=== PATIENT | male | born 1980 ===

== ENCOUNTER 2022-03-11 14:16 | Outpatient (CLI) | payer OTHER | END 2022-03-11 14:27 | disposition home or self-care (01) | LOC: TOM 14:16 | PROVIDERS: ATTEND Otolaryngology Otology & Neurotology | DX: J33.0 Polyp of nasal cavity (principal) ==

== ENCOUNTER 2022-04-22 06:40 | Day surgery (SDC) | payer OTHER ==
[~2022-04-22] VITALS: Ht 180.3 cm; Wt 87.1 kg
[~2022-04-22 06:40] MED LIST: IBUPRO PO
[2022-04-22] MEDS ORDERED: AMOXICILLIN500 M1 PO (11:48)
[2022-04-22] MEDS ORDERED: AYR SALINE50 ML NASAL (11:49)
== END 2022-04-22 14:20 | disposition home or self-care (01) ==
LOC: CIR.AMB 06:40
PROVIDERS: ATTEND Otolaryngology Otology & Neurotology
DX: J32.4 Chronic pansinusitis (principal); J33.8 Other polyp of sinus; Z20.822 Contact with and (suspected) exposure to COVID-19; Z86.16 Personal history of COVID-19; E78.5 Hyperlipidemia, unspecified